=== PATIENT | male | born 1960 | race Caucasian/White ===

== ENCOUNTER 2018-07-30 22:13 | Emergency (ER) | payer SELFPAY ==
[2018-07-30] MEDS ORDERED: TDAP ADULT 0.5 ML INJ (BOOSTRIX) IM ONE (22:20)
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
[2018-07-30] MEDS ORDERED: MIDAZOLAM 10 MG/2 ML VIAL IM ONE (22:37)
[2018-07-30] MEDS ORDERED: MIDAZOLAM 10 MG/2 ML VIAL ONE (22:37)
[2018-07-31 00:49] VITALS: BP 140/92
== END 2018-07-31 00:49 | disposition home or self-care (01) ==
PROC: 0HQ0XZZ Repair Scalp Skin, External Approach (ICD-10-PCS; principal; 2018-07-30)
DX: S01.01XA Laceration without foreign body of scalp, initial encounter (principal); F10.921 Alcohol use, unspecified with intoxication delirium; R41.0 Disorientation, unspecified; W19.XXXA Unspecified fall, initial encounter; Y92.511 Restaurant or cafe as the place of occurrence of the external cause; Y93.9 Activity, unspecified; Y99.9 Unspecified external cause status
CPT/HCPCS: J2250